=== PATIENT | male | born 1945 | race Hispanic/Latino ===

== ENCOUNTER 2018-10-17 02:32 | Emergency (ER) | payer MEDICARE, MEDICAID, SELFPAY ==
[2018-10-17 02:46] VITALS: BP 178/64; PULSE 72; RESP 16; TEMP 36.7; O2SAT 97; BMI 36.1
--- NOTE | 2018-10-17 02:54 | DI.RAD.S_ITS ---
PROCEDURE: XR LUMBAR SPINE 2-3V INDICATIONS: left SI region pain, chronic, intermittent, no trauma TECHNIQUE: 3 views of the lumbar spine were acquired. COMPARISON: None. FINDINGS: Bones: 5 [id number] vertebrae are present in the lowest rib visualized is considered the 12th rib and is fully developed. There is transitional vertebral anatomy at the lumbosacral junction, with what appears to be a rudimentary disc at S1-S2 and facet joints also rudimentary S1-S2. 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 Degenerative disc disease is moderate to moderately severe at L5-S1. Sacroiliac joints show mild symmetric degenerative change.. There is normal bony alignment. No vertebral body compression fractures. No suspicious bony lesions. Soft tissues: Overlying bowel gas pattern is normal. No suspicious soft tissue calcifications. IMPRESSION: No trauma found. The lowest visualized rib is large and presumed to be the 12th rib. With this qualification there appears to be a transitional vertebral anatomy at the lumbosacral junction as discussed in detail in the body of the report above. Low lumbosacral spine and S1-S2 degenerative changes are prominent and most pronounced at L5-S1 and S1-S2. Both spinal and foraminal stenosis likely would be associated. Dictated by: Jelani Puentes M.D. on 10/17/2018 at 8:28 Approved by: Jelani Puentes M.D. on 10/17/2018 at 8:30
--- NOTE | 2018-10-17 02:55 | ED.BACK ---
HPI - Back Pain/Injury General Chief Complaint: Back Pain/Injury Stated Complaint: back pain Time Seen by Provider: 10/17/18 02:38 Source: patient and family Mode of arrival: ambulatory Limitations: language barrier (patient speaks some azerbaijani, daughter also translating in room.) History of Present Illness HPI Narrative: This is a 73-year-old male comes to the emergency department with complaint of left-sided back pain. Patient points to the SI region and states the pain is very localized. I states it feels a little bit deep. It comes and goes but is typically exacerbated by activity or sitting for long periods of time. Him and his just recently drove up from [facility] and that he was doing work in the , gardening and moving a lot of trash Litch likely exacerbated his symptoms. The pain does not radiate anywhere else. Does not have any numbness or weakness. He has been treated emergency department before and states he usually gets a shot for the pain. Patient had some Tylenol at 3:00 p.m. today has not had anything else since then. Patient has not had any falls or trauma. No chest pain. Patient has a history significant for heart attack 30 years ago, diabetes, hypertension and dyslipidemia. He states no chronic kidney issues or disease. He has had a hip repair on the left side in the past. Which seemed to be when the back SI region pain initially started. This was many years ago. Related Data Home Medications Medication Instructions Recorded Confirmed albuterol sulfate [Proventil HFA] 1 puff INHALATION Q4-6H PRN 10/17/18 10/17/18 aspirin [Aspirin Low Dose] 81 mg PO DAILY 10/17/18 10/17/18 doxazosin 4 mg PO DAILY 10/17/18 10/17/18 finasteride 5 mg PO DAILY 10/17/18 10/17/18 fluticasone [Flovent HFA] 1 puff INHALATION BID 10/17/18 10/17/18 glipizide 5 mg PO BID 10/17/18 10/17/18 lisinopril 2.5 mg PO DAILY 10/17/18 10/17/18 lovastatin 40 mg PO DAILY 10/17/18 10/17/18 metformin 1,000 mg PO BID 10/17/18 10/17/18 omeprazole 20 mg PO DAILY 10/17/18 10/17/18 Previous Rx's Medication Instructions Recorded hydrocodone-acetaminophen [[place]] 1 tab PO Q6H PRN #7 tab 10/17/18 Allergies Allergy/AdvReac Type Severity Reaction Status Date / Time No Known Drug Allergies Allergy Verified 10/17/18 02:55 Review of Systems Review of Systems All systems reviewed & are unremarkable except as noted in HPI and below Constitutional Denies fever(s) and Denies weakness Gastrointestinal Gastrointestinal: Denies abdominal pain Genitourinary Denies urinary incontinence Musculoskeletal Reports abnormal gait (pain with movement), Reports back pain, Reports limited range of motion, Denies muscle weakness, Denies numbness and Denies radiating pain into limb Integumentary/Breasts Denies rash Neurologic Reports abnormal gait (pain with movement), Denies numbness, Denies sensory deficit and Denies weakness PFSH Medical History Coronary artery disease (Acute) Diabetes (Acute) Dyslipidemia (Acute) Hypertension (Acute) Surgical History History of hip surgery (Acute) Social History marital status: details: Lives in [place], [place] household members: spouse lives independently: Yes Smoking Status: Never smoker Exam Narrative Exam Narrative: GENERAL: Alert and oriented x three, Well-nourished, well-appearing male in moderate distress. HEENT: Head normocephalic, atraumatic, EOMI, pupils reactive, face symmetric, moist mucous membranes NECK: Supple, full range of motion CARDIOVASCULAR: Regular rate and rhythm without murmurs, rubs or gallops. RESPIRATORY: Breath sounds equal bilaterally, no wheezes rales or rhonchi. ABDOMEN: Soft, nontender. Normoactive bowel sounds all 4 quadrants. No guarding or rebound, rigidity, no mass : No CVA tenderness BACK: No cervical, thoracic or lumbar vertebral point tenderness. Patient has point tenderness over the left SI joint. Patient has decreased range of motion but is able to move from standing to laying on gurney, patient more comfortable laying flat, uncomfortable at angle. Patient's gait is antalgic. Rectal exam is deferred. Muscle strength is 5/5 in lower extremities, DTRs are 2/4 and lower extremities. Dorsalis pedis and tibialis pulses are 2+ and lower extremities. Sensation is intact in the lower extremities. No rashes or erythema. EXTREMITIES: Normal range of motion, no clubbing or edema. Neurovascularly intact NEUROLOGICAL: Cranial nerves II through XII grossly intact. Moving all extremities SKIN: Warm, dry, no petechiae, no rashes or lesions. Initial Vital Signs Initial Vital Signs: Vital Signs Temperature 98.1 F 10/17/18 02:46 Pulse Rate 72 10/17/18 02:46 Respiratory Rate 16 10/17/18 02:46 Blood Pressure 178/64 H 10/17/18 02:46 Pulse Oximetry 97 10/17/18 02:46 Course Orders Ordered: ED Orders 10/17/18 02:54 XR lumbar spine 2-3V Stat Discontinued Medications Hydrocodone Bitart/Acetaminophen (Vicodin Prepack) 1 bottle MISC SEEINSTR ONE Stop: 10/17/18 04:11 Last Admin: 10/17/18 04:34 Dose: 1 bottle Ketorolac Tromethamine (Toradol) 30 mg IM NOW ONE Stop: 10/17/18 02:55 Last Admin: 10/17/18 03:05 Dose: 30 mg Lorazepam (Ativan) 0.5 mg PO NOW ONE Stop: 10/17/18 02:55 Last Admin: 10/17/18 03:05 Dose: 0.5 mg Vital Signs - 8 hr 10/17/18 02:46 10/17/18 04:48 Temperature 98.1 F Pulse Rate 72 70 Respiratory Rate 16 16 Blood Pressure 178/64 H 187/92 H Pulse Oximetry 97 99 [facility] - Back Pain/Injury Imaging Data Lspine xray: Attestation: I personally reviewed and interpreted this imaging study as follows: My impression: Patient has multiple degenerative changes/osteophytes to lumbar spine, L5 appears to have small posterior fx. Also increased opacity of right SI region. [facility] Narrative Medical decision making narrative: Recheck after medication, patient is feeling more comfortable. Discussed xray findings with patient and daughter. Patient is not tender in this area, no recent trauma and with recurrent SI region pain feel it is appropriate for patient to follow up outpatient. Patient given disc with images and discussed need for follow up. They will call Thursday morning for appointment. Given short term rx of pain meds and plan for tylenol/ibuprofen prn otherwise for pain. Patient has not had any other redflag symptoms. Patient feels much more comfortable, able to ambulate. Family is comfortable with plan, also discussed red flag symptoms to return emergently to ER. Discharge Plan Departure Patient Disposition: Home Clinical Impression: Chronic SI joint pain, Fracture of L5 vertebra Discharge Date/Time: 10/17/18 04:51 Interventions: ED Discharge Assessment Last Done: 10/17/18 04:48 Instructions: Sacroiliac Joint Pain Activity Restrictions/Additional Instructions: Follow up with primary care for recheck and further evaluation of changes on xray. Return to ER for worsening symptoms such as new weakness, numbness, loss of bowel or bladder control, rapidly worsening pain or other new or concerning symptoms. Take the disc with xray images with you to your physician. You may take tylenol up to a 1000mg every 8 hours as needed for pain. If this is not adequate, take norco as prescribed, this medication can make you sleepy do not drive, perform hazards activities or make any major decisions while taking it. You may take ibuprofen with this medication. Do not take it with tylenol. You may continue your home medications. Prescriptions: New hydrocodone-acetaminophen [[place]] 5-325 mg tablet 1 tab PO Q6H PRN (Reason: pain) Qty: 7 RF: 0 No Action lovastatin 40 mg Tablet 40 mg PO DAILY RF: 0 aspirin [Aspirin Low Dose] 81 mg Tablet,Delayed Release (Dr/Ec) 81 mg PO DAILY RF: 0 metformin 1,000 mg Tablet 1,000 mg PO BID RF: 0 omeprazole 20 mg Capsule,Delayed Release(Dr/Ec) 20 mg PO DAILY RF: 0 doxazosin 4 mg Tablet 4 mg PO DAILY RF: 0 fluticasone [Flovent HFA] 220 mcg/actuation Hfa Aerosol Inhaler 1 puff INHALATION BID RF: 0 albuterol sulfate [Proventil HFA] 90 mcg/actuation Hfa Aerosol Inhaler 1 puff INHALATION Q4-6H PRN (Reason: Dyspnea) RF: 0 lisinopril 2.5 mg Tablet 2.5 mg PO DAILY RF: 0 finasteride 5 mg Tablet 5 mg PO DAILY RF: 0 glipizide 5 mg Tablet 5 mg PO BID RF: 0
--- NOTE | 2018-10-17 03:04 | ED_ITS ---
HPI - Back Pain/Injury General Chief Complaint: Back Pain/Injury Stated Complaint: back pain Time Seen by Provider: 10/17/18 02:38 Source: patient and family Mode of arrival: ambulatory Limitations: language barrier (patient speaks some uzbek, daughter also translating in room.) History of Present Illness HPI Narrative: This is a 73-year-old male comes to the emergency department with complaint of left-sided back pain. Patient points to the SI region and states the pain is very localized. I states it feels a little bit deep. It comes and goes but is typically exacerbated by activity or sitting for long periods of time. Him and his just recently drove up from [facility] and that he was doing work in the , gardening and moving a lot of trash Litch likely exacerbated his symptoms. The pain does not radiate anywhere else. Does not have any numbness or weakness. He has been treated emergency department before and states he usually gets a shot for the pain. Patient had some Tylenol at 3:00 p.m. today has not had anything else since then. Patient has not had any falls or trauma. No chest pain. Patient has a history significant for heart attack 30 years ago, diabetes, hypertension and dyslipidemia. He states no chronic kidney issues or disease. He has had a hip repair on the left side in the past. Which seemed to be when the back SI region pain initially started. This was many years ago. Related Data Home Medications Medication Instructions Recorded Confirmed albuterol sulfate [Proventil HFA] 1 puff INHALATION Q4-6H PRN 10/17/18 10/17/18 aspirin [Aspirin Low Dose] 81 mg PO DAILY 10/17/18 10/17/18 doxazosin 4 mg PO DAILY 10/17/18 10/17/18 finasteride 5 mg PO DAILY 10/17/18 10/17/18 fluticasone [Flovent HFA] 1 puff INHALATION BID 10/17/18 10/17/18 glipizide 5 mg PO BID 10/17/18 10/17/18 lisinopril 2.5 mg PO DAILY 10/17/18 10/17/18 lovastatin 40 mg PO DAILY 10/17/18 10/17/18 metformin 1,000 mg PO BID 10/17/18 10/17/18 omeprazole 20 mg PO DAILY 10/17/18 10/17/18 Previous Rx's Medication Instructions Recorded hydrocodone-acetaminophen [[place]] 1 tab PO Q6H PRN #7 tab 10/17/18 Allergies Allergy/AdvReac Type Severity Reaction Status Date / Time No Known Drug Allergies Allergy Verified 10/17/18 02:55 Review of Systems Review of Systems All systems reviewed & are unremarkable except as noted in HPI and below Constitutional Denies fever(s) and Denies weakness Gastrointestinal Gastrointestinal: Denies abdominal pain Genitourinary Denies urinary incontinence Musculoskeletal Reports abnormal gait (pain with movement), Reports back pain, Reports limited range of motion, Denies muscle weakness, Denies numbness and Denies radiating pain into limb Integumentary/Breasts Denies rash Neurologic Reports abnormal gait (pain with movement), Denies numbness, Denies sensory deficit and Denies weakness PFSH Medical History Coronary artery disease (Acute) Diabetes (Acute) Dyslipidemia (Acute) Hypertension (Acute) Surgical History History of hip surgery (Acute) Social History marital status: details: Lives in [place], [place] household members: spouse lives independently: Yes Smoking Status: Never smoker Exam Narrative Exam Narrative: GENERAL: Alert and oriented x three, Well-nourished, well- appearing male in moderate distress. HEENT: Head normocephalic, atraumatic, EOMI, pupils reactive, face symmetric, moist mucous membranes NECK: Supple, full range of motion CARDIOVASCULAR: Regular rate and rhythm without murmurs, rubs or gallops. RESPIRATORY: Breath sounds equal bilaterally, no wheezes rales or rhonchi. ABDOMEN: Soft, nontender. Normoactive bowel sounds all 4 quadrants. No guarding or rebound, rigidity, no mass : No CVA tenderness BACK: No cervical, thoracic or lumbar vertebral point tenderness. Patient has point tenderness over the left SI joint. Patient has decreased range of motion but is able to move from standing to laying on gurney, patient more comfortable laying flat, uncomfortable at angle. Patient's gait is antalgic. Rectal exam is deferred. Muscle strength is 5/5 in lower extremities, DTRs are 2/4 and lower extremities. Dorsalis pedis and tibialis pulses are 2+ and lower extremities. Sensation is intact in the lower extremities. No rashes or erythema. EXTREMITIES: Normal range of motion, no clubbing or edema. Neurovascularly intact NEUROLOGICAL: Cranial nerves II through XII grossly intact. Moving all extremities SKIN: Warm, dry, no petechiae, no rashes or lesions. Initial Vital Signs Initial Vital Signs: Vital Signs Temperature 98.1 F 10/17/18 02:46 Pulse Rate 72 10/17/18 02:46 Respiratory Rate 16 10/17/18 02:46 Blood Pressure 178/64 H 10/17/18 02:46 Pulse Oximetry 97 10/17/18 02:46 Course Orders Ordered: ED Orders 10/17/18 02:54 XR lumbar spine 2-3V Stat Discontinued Medications Hydrocodone Bitart/Acetaminophen (Vicodin Prepack) 1 bottle MISC SEEINSTR ONE Stop: 10/17/18 04:11 Last Admin: 10/17/18 04:34 Dose: 1 bottle Ketorolac Tromethamine (Toradol) 30 mg IM NOW ONE Stop: 10/17/18 02:55 Last Admin: 10/17/18 03:05 Dose: 30 mg Lorazepam (Ativan) 0.5 mg PO NOW ONE Stop: 10/17/18 02:55 Last Admin: 10/17/18 03:05 Dose: 0.5 mg Vital Signs - 8 hr 10/17/18 02:46 10/17/18 04:48 Temperature 98.1 F Pulse Rate 72 70 Respiratory Rate 16 16 Blood Pressure 178/64 H 187/92 H Pulse Oximetry 97 99 [facility] - Back Pain/Injury Imaging Data Lspine xray: Attestation: I personally reviewed and interpreted this imaging study as follows: My impression: Patient has multiple degenerative changes/osteophytes to lumbar spine, L5 appears to have small posterior fx. Also increased opacity of right SI region. [facility] Narrative Medical decision making narrative: Recheck after medication, patient is feeling more comfortable. Discussed xray findings with patient and daughter. Patient is not tender in this area, no recent trauma and with recurrent SI region pain feel it is appropriate for patient to follow up outpatient. Patient given disc with images and discussed need for follow up. They will call Thursday morning for appointment. Given short term rx of pain meds and plan for tylenol/ ibuprofen prn otherwise for pain. Patient has not had any other redflag symptoms. Patient feels much more comfortable, able to ambulate. Family is comfortable with plan, also discussed red flag symptoms to return emergently to ER. Discharge Plan Departure Patient Disposition: Home Clinical Impression: Chronic SI joint pain, Fracture of L5 vertebra Discharge Date/Time: 10/17/18 04:51 Interventions: ED Discharge Assessment Last Done: 10/17/18 04:48 Instructions: Sacroiliac Joint Pain Activity Restrictions/Additional Instructions: Follow up with primary care for recheck and further evaluation of changes on xray. Return to ER for worsening symptoms such as new weakness, numbness, loss of bowel or bladder control, rapidly worsening pain or other new or concerning symptoms. Take the disc with xray images with you to your physician. You may take tylenol up to a 1000mg every 8 hours as needed for pain. If this is not adequate, take norco as prescribed, this medication can make you sleepy do not drive, perform hazards activities or make any major decisions while taking it. You may take ibuprofen with this medication. Do not take it with tylenol. You may continue your home medications. Prescriptions: New hydrocodone-acetaminophen [[place]] 5-325 mg tablet 1 tab PO Q6H PRN (Reason: pain) Qty: 7 RF: 0 No Action lovastatin 40 mg Tablet 40 mg PO DAILY RF: 0 aspirin [Aspirin Low Dose] 81 mg Tablet,Delayed Release (Dr/Ec) 81 mg PO DAILY RF: 0 metformin 1,000 mg Tablet 1,000 mg PO BID RF: 0 omeprazole 20 mg Capsule,Delayed Release(Dr/Ec) 20 mg PO DAILY RF: 0 doxazosin 4 mg Tablet 4 mg PO DAILY RF: 0 fluticasone [Flovent HFA] 220 mcg/actuation Hfa Aerosol Inhaler 1 puff INHALATION BID RF: 0 albuterol sulfate [Proventil HFA] 90 mcg/actuation Hfa Aerosol Inhaler 1 puff INHALATION Q4-6H PRN (Reason: Dyspnea) RF: 0 lisinopril 2.5 mg Tablet 2.5 mg PO DAILY RF: 0 finasteride 5 mg Tablet 5 mg PO DAILY RF: 0 glipizide 5 mg Tablet 5 mg PO BID RF: 0
--- NOTE | 2018-10-17 03:04 | PC.NURSE ---
pt daughter translating for pt. Pt appears to have good understanding of Azerbaijani with difficulty in speaking Azerbaijani. Pt reports having a hip fracture a long time ago that started a reoccurring nerve pain when sitting for long periods of time or when it is really cold outside. Pt just drove up from [facility] and the outside temp is in the 30s. Pt denies changes in bowel or bladder. denies sensory deficits in lower extremities. denies other symptoms. Pt had difficulty transferring from wheelchair to stretcher requiring 2pa assistance with what appeared to be shooting pain with big movements. Pt is able to find comfort when laying flat on stretcher.
[2018-10-17] MEDS: LORazepam 0.5 MG TABLET PO (03:05)
[2018-10-17] MEDS: KETOROLAC 60 MG/2 ML VIAL 30 MG IM (03:05)
[2018-10-17] MEDS: HYDROCODONE/ACET 5/325 PREPACK 1 BOTTLE MISC (04:34)
[2018-10-17 04:48] VITALS: BP 187/92; PULSE 70; RESP 16; O2SAT 99
--- NOTE | 2018-10-19 14:40 | PC.NURSE ---
Pt feeling better
== END 2018-10-17 04:51 | disposition home or self-care (01) ==
PROVIDERS: Emergency Provider Emergency Medicine
DX: S32.059A Unspecified fracture of fifth lumbar vertebra, initial encounter for closed fracture (principal); M53.3 Sacrococcygeal disorders, not elsewhere classified; G89.29 Other chronic pain; X50.1XXA Overexertion from prolonged static or awkward postures, initial encounter
CPT/HCPCS: 72100; 96372; 99282; 99283; J1885

== ENCOUNTER 2024-01-15 15:37 | Emergency (ER) | payer MEDICARE, MEDICAID, SELFPAY ==
[2024-01-15] VITALS (17 sets, daily range): BP systolic 130–194; BP diastolic 58–83; PULSE 58–72; RESP 18–20; TEMP 36.5; O2SAT 97–100; BMI 27.4
[2024-01-15 16:38] LABS: Add Manual Diff / Slide Review NO; Basophils Absolute Auto 100 /uL (0-100); Eosinophils Absolute Auto 300 /uL (0-450); Eosinophils Percent Auto 3.2 % (2-4); Hematocrit 38.3 % (41-53); Hemoglobin 13.1 g/dL (13.5-17.5); Lymphocytes Absolute Auto 2500 /uL (1100-4500); Mean Corpuscular HGB Conc 34.1 % (30-36); Mean Corpuscular Hemoglobin 28.6 PG (26-34); Mean Corpuscular Volume 83.9 fL (80-100); Monocytes Absolute Auto 900 /uL (0-900); Monocytes Percent Auto 9.8 % (3-14); Neutrophils Absolute Auto 5500 /uL (1500-7000); Platelet Count 248 X10^3/uL (150-400); Red Blood Cell Count 4.57 X10^6/uL (4.5-5.9); Red Cell Distribution Width 13.4 % (11.6-14.8); White Blood Cell Count 9.3 X10^3/uL (4.5-11.0)
[2024-01-15 16:41] LABS: Alanine Aminotransferase 19 IU/L (<50); Albumin Globulin Ratio 1.3 (1.0-2.8); Alkaline Phosphatase 47 U/L (38-126); Aspartate Aminotransferase 28 IU/L (17-59); BUN Creatinine Ratio 24.7 (6-22); Bilirubin Total 0.6 mg/dL (0.2-1.3); Blood Urea Nitrogen 20 mg/dL (9-20); Calcium 9.1 mg/dL (8.4-10.2); Carbon Dioxide 18 mmol/L (22-32); Chloride 103 mmol/L (98-107); Estimated Glomerular Filt Rate > 60 mL/min (>60); Glucose 259 mg/dL (80-110); Lipase 369 U/L (23-300); Potassium 4.2 mmol/L (3.4-5.1); Sodium 135 mmol/L (137-145)
[2024-01-15 16:43] LABS: HEMOLYSIS 61 (0-50)
--- NOTE | 2024-01-15 17:57 | PC.NURSE ---
Pt's daughter at bedside and pt and family informed of having access to a drophammer operator. Pt and daughter deny drophammer operator need at this time. Pt states history of mini strokes and responds yes when asked if he takes blood thinners. Pt pulled out a bottle of SL nitroglycerin from his wallet to show us his blood thinners. Pt educated about the nitroglycerin use for chest pain. Pt and daughter express understanding. Pt had history of right lung cancer .
--- NOTE | 2024-01-15 19:00 | DI.CT.S_ITS ---
PROCEDURE: CT CHEST ABD PEL W CON INDICATIONS: RLower lung field and LUQ abd pain TECHNIQUE: After the administration of intravenous contrast, 5 mm thick sections acquired from the lung apices to the symphysis. 5 mm coronal and sagittal reformats were performed, with additional 7 mm MIP reformats through the lungs. For radiation dose reduction, the following was used: automated exposure control, adjustment of mA and/or kV according to patient size. COMPARISON: None. FINDINGS: Image quality: Excellent. CHEST: Lower Neck: No enlarged lymph nodes. Thyroid: Heterogeneous and slightly enlarged thyroid gland. Probable bilateral nodules. Axillae: No enlarged lymph nodes. Chest Wall: Normal. Lungs and Pleura: Surgical changes of prior right upper lobectomy. No evidence of pneumothorax, pleural effusion, consolidation, or ground-glass opacity. Mild bibasilar bronchial wall thickening. Otherwise patent airways Heart: Heart size is normal. No pericardial effusion. Thoracic Vessels: The aorta and pulmonary arteries demonstrate normal size. Mediastinum and Jamia: No enlarged lymph nodes. Esophagus: No wall thickening. No hiatal hernia. ABDOMEN: Liver: Mild hepatic steatosis. Gallbladder: Surgically absent. Biliary ducts: Nondilated. Pancreas: Normal. Spleen: Normal. Adrenal Glands: No adrenal nodules. Kidneys and Ureters: Symmetric enhancement. No nephrolithiasis or hydronephrosis. No hydroureter. Stomach and Bowel: Stomach and small bowel loops are normal caliber. Normal colon. No suspicious wall thickening or pericolonic inflammation. Peritoneum: No abnormal intraperitoneal fluid. No free air. Ventral Wall: No significant ventral hernia. Abdominal Nodes: No retroperitoneal or mesenteric adenopathy by size criteria. Vessels: Aorta and inferior vena cava are normal in size. Moderate abdominal aortic atherosclerotic calcification. PELVIS: Pelvic Organs: Marked prostatomegaly. Bladder: No bladder wall thickening, accounting for underdistention. Pelvic Nodes: No enlarged lymph nodes. Miscellaneous: No inguinal hernias are seen. Bones: No aggressive osseous abnormality. IMPRESSION: No acute process in the chest, abdomen, or pelvis. Mildly enlarged heterogeneous thyroid gland. Correlate clinically and consider ultrasound for further evaluation. Dictated by: Celia Wellington M.D. on 01/15/2024 at 21:12 Approved by: Celia Wellington M.D. on 01/15/2024 at 21:25
[2024-01-15] MEDS: SODIUM CHLORIDE 0.9% 1,000 ML 1000 ML IV (19:24)
[2024-01-15] MEDS: HYDROMORPHONE 0.5 MG INJ IV (19:49)
--- NOTE | 2024-01-15 19:51 | ED_ITS ---
HPI - General Adult General Chief complaint: Abdominal Pain Stated complaint: ABD Pain Time Seen by Provider: 01/15/24 18:21 Source: patient Mode of arrival: Ambulatory History of Present Illness HPI narrative: 78-year-old gentleman up from [facility] visiting his daughter presents complaining of 5 days of right upper quadrant and lower lung tenderness. He states that the pain is constant and will have periods of exacerbation that do not seem to be related to position, eating or fasting. He has a history of right lower lobe lung cancer with right upper lobe resection on October 18, 2023. Additional medical problems include Type 2 diabetes, reactive airway disease, hypertension, hyperlipidemia, reflux. He notes that he has not been nauseated, there has been no vomiting, he had a normal bowel movement this morning that did not change her alleviate his pain. He states that he has been stooling normally while he has been visiting this week. He describes no palpitations or dyspnea. Related Data Home Medications Medication Instructions Recorded Confirmed albuterol sulfate 90 mcg/actuation 1 puff inhalation Q4-6H PRN Dyspnea 10/17/18 10/17/18 aerosol inhaler (Proventil HFA) aspirin 81 mg tablet,delayed 81 mg PO DAILY 10/17/18 10/17/18 release (Dionte Low Dose Aspirin) doxazosin 4 mg tablet 4 mg PO DAILY 10/17/18 10/17/18 finasteride 5 mg tablet 5 mg PO DAILY 10/17/18 10/17/18 fluticasone propionate 220 1 puff inhalation BID 10/17/18 10/17/18 mcg/actuation HFA aerosol inhaler (Flovent HFA) glipizide 5 mg tablet 5 mg PO BID 10/17/18 10/17/18 lisinopril 2.5 mg tablet 2.5 mg PO DAILY 10/17/18 10/17/18 lovastatin 40 mg tablet 40 mg PO DAILY 10/17/18 10/17/18 metformin 1,000 mg tablet 1,000 mg PO BID 10/17/18 10/17/18 omeprazole 20 mg capsule,delayed 20 mg PO DAILY 10/17/18 10/17/18 release Previous Rx's Medication Instructions Recorded hydrocodone 5 mg-acetaminophen 325 1 tab PO Q6H PRN pain #7 tabs 10/17/18 mg tablet ([place]) Allergies Allergy/AdvReac Type Severity Reaction Status Date / Time No Known Drug Allergies Allergy Verified 01/15/24 16:06 Review of Systems Review of Systems Narrative: Pertinent positive and negative findings as per HPI Patient History Medical History (Updated 01/15/24 @ 21:47 by Awa Brand MD) Lung cancer Coronary artery disease Hypertension Dyslipidemia Diabetes Surgical History (Updated 10/17/18 @ 03:01 by Apryl Alvarez DO) History of hip surgery Social History (Updated 10/17/18 @ 03:01 by Apryl Alvarez DO) marital status: details: Lives in [place], [place] household members: spouse lives independently: Yes Smoking Status: Never smoker Smoking Status: Never smoker alcohol intake frequency: 0-2 drinks per day Substance Use Type: does not use Exam Initial Vital Signs Initial Vital Signs: Vital Signs Temperature 97.7 F 01/15/24 15:56 Pulse Rate 72 01/15/24 15:56 Respiratory Rate 20 01/15/24 15:56 Blood Pressure 130/58 L 01/15/24 15:56 Pulse Oximetry 99 01/15/24 15:56 Oxygen Delivery Method Room Air 01/15/24 15:56 General: Healthy appearing, in mild distress. Able to cooperate fully with exam and history. Well-nourished well-developed HEENT: Moist mucous membranes, normal sclera with reactive pupils, Respiratory: Lungs are clear to auscultation, no wheezing no rales no rhonchi. Full and symmetrical air movement Chest: He has some reproducible tenderness with palpation of the right lower chest and right upper abdominal area. Cardiac: Regular rate and rhythm no murmurs no bruits Abdomen: Soft, right upper abdominal tenderness without rebound or guarding. No flank pain. Skin: Warm and dry, no rashes Neurologic: Grossly neurologically intact with no obvious asymmetries or abnormalities Extremities: No trauma, well perfused Psych: Cooperative, appropriate insight and affect Course Orders Ordered: ED Orders 01/15/24 16:07 EKG-12 Lead Stat 01/15/24 16:15 Complete Blood Count AUTO DIFF Stat Comprehensive Metabolic Panel Stat Lipase Stat 01/15/24 19:00 CT chest abd pel w con Stat Hydromorphone HCl (Hydromorphone 0.5 Mg Inj) 0.5 mg IV Q15MIN PRN PRN Reason: Pain, Last Admin: 01/15/24 19:49 Dose: 0.5 mg Documented By: JOSE Ondansetron HCl (Ondansetron 4 Mg/2 Ml Inj) 4 mg IV NOW PRN PRN Reason: Nausea And Vomiting Ondansetron HCl (Ondansetron 4 Mg Odt) 4 mg PO NOW PRN PRN Reason: Nausea And Vomiting Discontinued Medications Sodium Chloride (Normal Saline 0.9%) 1,000 mls @ 1,000 mls/hr IV BOLUS ONE Stop: 01/15/24 19:59 Last Infusion: 01/15/24 21:16 Dose: Infused Documented By: Infusion: 01/15/24 19:50 Dose: 1,000 mls/hr Documented By: Infusion: 01/15/24 19:25 Dose: 0 mls/hr Documented By: Admin: 01/15/24 19:24 Dose: 1,000 mls/hr Documented By: PAMELA Vital Signs Vital signs: Vital Signs - 8 hr 01/15/24 15:56 01/15/24 16:50 01/15/24 16:50 Temperature 97.7 F Pulse Rate 72 68 Respiratory Rate 20 Blood Pressure 130/58 L 142/67 H Pulse Oximetry 99 100 Oxygen Delivery Method Room Air Room Air 01/15/24 17:00 01/15/24 17:30 01/15/24 17:50 Temperature Pulse Rate 65 64 Respiratory Rate Blood Pressure 175/68 H Pulse Oximetry 99 99 Oxygen Delivery Method Room Air 01/15/24 17:50 01/15/24 18:00 01/15/24 18:00 Temperature Pulse Rate 63 64 Respiratory Rate Blood Pressure 156/72 H Pulse Oximetry 97 98 Oxygen Delivery Method Room Air 01/15/24 18:30 01/15/24 18:30 01/15/24 19:00 Temperature Pulse Rate 65 59 L Respiratory Rate Blood Pressure 150/72 H Pulse Oximetry 99 98 Oxygen Delivery Method Room Air Room Air 01/15/24 19:00 01/15/24 19:38 01/15/24 19:39 Temperature Pulse Rate 66 65 Respiratory Rate Blood Pressure 148/64 H Pulse Oximetry 99 99 Oxygen Delivery Method 01/15/24 19:39 01/15/24 20:00 01/15/24 20:01 Temperature Pulse Rate 60 62 Respiratory Rate 18 Blood Pressure 194/83 H Pulse Oximetry 98 98 Oxygen Delivery Method Room Air 01/15/24 20:01 01/15/24 20:30 01/15/24 20:31 Temperature Pulse Rate 59 L Respiratory Rate Blood Pressure 189/79 H 166/79 H Pulse Oximetry 98 Oxygen Delivery Method 01/15/24 20:31 01/15/24 21:00 01/15/24 21:05 Temperature Pulse Rate 58 L 60 Respiratory Rate Blood Pressure 149/82 H Pulse Oximetry 98 99 Oxygen Delivery Method Room Air Room Air 01/15/24 21:05 Temperature Pulse Rate 59 L Respiratory Rate Blood Pressure Pulse Oximetry 99 Oxygen Delivery Method Medical Decision Making Lab Data 01/15/24 16:15 01/15/24 16:15 Labs: Lab Results 01/15/24 Range/Units 16:15 WBC 9.3 (4.5-11.0) X10^3/uL RBC 4.57 (4.5-5.9) X10^6/uL Hgb 13.1 L (13.5-17.5) g/dL Hct 38.3 L (41-53) % MCV 83.9 (80-100) fL MCH 28.6 (26-34) PG MCHC 34.1 (30-36) % RDW 13.4 (11.6-14.8) % Plt Count 248 (150-400) X10^3/uL Neut % (Auto) 59.0 (50-75) % Lymph % (Auto) 27.0 (25-40) % [place] % (Auto) 9.8 (3-14) % Eos % (Auto) 3.2 (2-4) % Baso % (Auto) 1.0 (0-2) % Neut # (Auto) 5500 (5533-4130) /uL Lymph # (Auto) 2500 (6371-3890) /uL Ramsey # (Auto) 900 (0-900) /uL Eos # (Auto) 300 (0-450) /uL Baso # (Auto) 100 (0-100) /uL Sodium 135 L (137-145) mmol/L Potassium 4.2 (3.4-5.1) mmol/L Chloride 103 (98-107) mmol/L Carbon Dioxide 18 L (22-32) mmol/L BUN 20 (9-20) mg/dL Creatinine 0.81 (0.66-1.25) mg/dL Estimated GFR > 60 (>60) mL/min BUN/Creatinine Ratio 24.7 H (6-22) Glucose 259 H (80-110) mg/dL Calcium 9.1 (8.4-10.2) mg/dL Total Bilirubin 0.6 (0.2-1.3) mg/dL AST 28 (17-59) IU/L ALT 19 (<50) IU/L Alkaline Phosphatase 47 (38-126) U/L Total Protein 7.0 (6.3-8.2) g/dL Albumin 4.0 (3.5-5.0) g/dL Globulin 3.0 (1.7-4.1) g/dL Albumin/Globulin Ratio 1.3 (1.0-2.8) Lipase 369 H (23-300) U/L Urine Dip Bedside Urine Glucose 1000 mg/dl Bedside Urine Bilirubin - Negative Bedside Urine Ketone - Negative Urine Specific [place] 1.020 Bedside Urine Occult Blood - Negative Bedside Urine pH 5.5 Bedside Urine Protein - Negative Bedside Urine Urobilinogen - Negative Bedside Urine Nitrite - Negative Bedside Urine Leukocytes - Negative Esterase Point of care testing: Urine Dip Bedside Urine Glucose 1000 mg/dl Bedside Urine Bilirubin - Negative Bedside Urine Ketone - Negative Urine Specific [place] 1.020 Bedside Urine Occult Blood - Negative Bedside Urine pH 5.5 Bedside Urine Protein - Negative Bedside Urine Urobilinogen - Negative Bedside Urine Nitrite - Negative Bedside Urine Leukocytes - Negative Esterase Imaging Data CT scan - abdomen/pelvis: Radiologist's Impression: PROCEDURE: CT CHEST ABD PEL W CON INDICATIONS: RLower lung field and LUQ abd pain TECHNIQUE: After the administration of intravenous contrast, 5 mm thick sections acquired from the lung apices to the symphysis. 5 mm coronal and sagittal reformats were performed, with additional 7 mm MIP reformats through the lungs. For radiation dose reduction, the following was used: automated exposure control, adjustment of mA and/or kV according to patient size. COMPARISON: None. FINDINGS: Image quality: Excellent. CHEST: Lower Neck: No enlarged lymph nodes. Thyroid: Heterogeneous and slightly enlarged thyroid gland. Probable bilateral nodules. Axillae: No enlarged lymph nodes. Chest Wall: Normal. Lungs and Pleura: Surgical changes of prior right upper lobectomy. No evidence of pneumothorax, pleural effusion, consolidation, or ground-glass opacity. Mild bibasilar bronchial wall thickening. Otherwise patent airways Heart: Heart size is normal. No pericardial effusion. Thoracic Vessels: The aorta and pulmonary arteries demonstrate normal size. Mediastinum and Jamia: No enlarged lymph nodes. Esophagus: No wall thickening. No hiatal hernia. ABDOMEN: Liver: Mild hepatic steatosis. Gallbladder: Surgically absent. Biliary ducts: Nondilated. Pancreas: Normal. Spleen: Normal. Adrenal Glands: No adrenal nodules. Kidneys and Ureters: Symmetric enhancement. No nephrolithiasis or hydronephrosis. No hydroureter. Stomach and Bowel: Stomach and small bowel loops are normal caliber. Normal colon. No suspicious wall thickening or pericolonic inflammation. Peritoneum: No abnormal intraperitoneal fluid. No free air. Ventral Wall: No significant ventral hernia. Abdominal Nodes: No retroperitoneal or mesenteric adenopathy by size criteria. Vessels: Aorta and inferior vena cava are normal in size. Moderate abdominal aortic atherosclerotic calcification. PELVIS: Pelvic Organs: Marked prostatomegaly. Bladder: No bladder wall thickening, accounting for underdistention. Pelvic Nodes: No enlarged lymph nodes. Miscellaneous: No inguinal hernias are seen. Bones: No aggressive osseous abnormality. IMPRESSION: No acute process in the chest, abdomen, or pelvis. Mildly enlarged heterogeneous thyroid gland. Correlate clinically and consider ultrasound for further evaluation. Dictated by: Celia Wellington M.D. on 01/15/2024 at 21:12 MDM Narrative Medical decision making narrative: CC: Right lower lobe and upper abdominal pain for 5 days Complicating co-morbidities: History of right lower lobe lung cancer, currently visiting with the majority of his care in [facility] Data collected from: patient, daughter Medical records reviewed: His daughter has access to his electronic health record on her phone and this was reviewed Differential considered: Complications with lung cancer, pneumonia, metastatic lesions, liver disease, choledocholithiasis (patient is unsure if he has had his gallbladder out but he has surgical scars but suggest that he probably has) Exam documented above, pertinent findings include: Moderate distress with reproducible tenderness and right lower lobes and right upper quadrant. Lab Test results independently reviewed as above. Pertinent findings: CBC does not show significant leukocytosis. Mild anemia at 13.1 and 38.3 Chemistries are notable for a glucose at 2:59 a.m., liver function studies are unremarkable Lipase is minimally elevated at 369 Imaging studies independently reviewed: CT scan shows no acute findings. There is moderate stool loading in the hepatic flexure which May explain part of his pain Treatments: IV fluids are given. Small dose of Dilaudid. Discussion: 78-year-old gentleman with recent right upper lobectomy visiting his daughter presents with 5 days of increasing abdominal pain and right lower lobe pain. He notes that he did have a normal bowel movement today. He does have occasional oxycodone available for the postoperative and cancer-related pain. CT scan is unremarkable as are labs. He does not have an acute surgical abdomen. Suspect that the majority of his pain is secondary to constipation. Patient is familiar with dealing with constipation and has MiraLax at home. Findings reviewed with the patient and family. They will add additional MiraLax are comfortable with current explanations and safe for discharge home. I will give him copies of their imaging studies as well as lab work to share with providers when he follows up in [facility] regarding his lung cancer care. Discharge Plan Departure Patient Disposition: Home Clinical Impression: Constipation Instructions: DI for Constipation Activity Restrictions/Additional Instructions: Thank you for coming in today There is no evidence of tumors, masses, infection, collapsed lungs or alternate findings to explain your abdominal pain. In looking at the CT scan there is quite a bit of stool that is stuck over in the corner of your abdomen where you are having the pain. I suspect that constipation is the cause for your pain. I would recommend increased use of MiraLax and adjust the dosage so that you are having at least 1 soft bowel movement daily. If you are having increasing pain try adding an extra dose of MiraLax. You can get backed up even with daily bowel movements. I have given you copies of the CT scan results as well as your blood work to share with your doctors when you return to [place] If you find that you are getting worse or develop any new symptoms, please feel free to return to the emergency department for further evaluation. Prescriptions: No Action lovastatin 40 mg Tablet 40 mg PO DAILY aspirin [Dionte Low Dose Aspirin] 81 mg Tablet,Delayed Release (Dr/Ec) 81 mg PO DAILY metformin 1,000 mg Tablet 1,000 mg PO BID omeprazole 20 mg Capsule,Delayed Release(Dr/Ec) 20 mg PO DAILY doxazosin 4 mg Tablet 4 mg PO DAILY fluticasone propionate [Flovent HFA] 220 mcg/actuation Hfa Aerosol Inhaler 1 puff INHALATION BID albuterol sulfate [Proventil HFA] 90 mcg/actuation Hfa Aerosol Inhaler 1 puff INHALATION Q4-6H PRN (Reason: Dyspnea) lisinopril 2.5 mg Tablet 2.5 mg PO DAILY finasteride 5 mg Tablet 5 mg PO DAILY glipizide 5 mg Tablet 5 mg PO BID hydrocodone-acetaminophen [[place]] 5-325 mg tablet 1 tab PO Q6H PRN (Reason: pain) Qty: 7 0RF Stand Alone Forms: Patient Portal/API
== END 2024-01-15 22:03 | disposition home or self-care (01) ==
PROVIDERS: Emergency Medicine; Emergency Provider Emergency Medicine
DX: K59.00 Constipation, unspecified (principal); R10.11 Right upper quadrant pain; Z79.899 Other long term (current) drug therapy
CPT/HCPCS: 36415; 71260; 74177; 80053; 81003; 83690; 85025; 96361; 96374; 99284; J1170; Q9967

== ENCOUNTER 2024-12-26 12:37 | Emergency (ER) | payer MEDICARE, MEDICAID, SELFPAY ==
[2024-12-26 12:45] VITALS: BP 150/65; PULSE 62; RESP 16; TEMP 36.5; O2SAT 100; BMI 26.8
[2024-12-26] MEDS: PROPARACAINE 0.5% OPHTH SOL 1 DROPS EYE-BOTH (14:15)
[2024-12-26] MEDS: FLUORESCEIN 1 MG STRIP EYE-LEFT (14:26)
--- NOTE | 2024-12-26 15:40 | PC.NURSE ---
Visual acuity performed in room with [facility] pocket vision screener. Pt vision is worse in his RIGHT (unaffected) eye. Pt states he has been needing to go to the eye doctor. See visual acuity. Right 20/200 Left 20/30 Bilateral 20/30 Provider Bowen notified.
[2024-12-26] MEDS: ERYTHROMYCIN OPHTH 1 GM OINT 1 APPLIC EYE-LEFT (15:46)
[2024-12-26 16:00] VITALS: BP 164/70; PULSE 59; RESP 14; O2SAT 97
--- NOTE | 2024-12-26 16:55 | ED_ITS ---
HPI - Eye Problem <Jarod Wiseman PA-C - Last Filed: 12/26/24 18:39> General Chief complaint: Eye Problems Stated complaint: eye irritation, rubbed chili oil eye Time Seen by Provider: 12/26/24 13:25 Source: patient and family Mode of arrival: Ambulatory History of Present Illness HPI Narrative: 79-year-old male presents to the ED with 4 days of left-sided eye irritation. Patient states that he accidentally rubbed his left eye when he had some chili oil on his finger. Patient has been trying to use [id number] redness reducing drops with no improvement. Patient complains of I irritation, headache. Patient states his left eye feels blurry, however no gross visual changes. Related Data Home Medications Medication Instructions Recorded Confirmed albuterol sulfate 90 mcg/actuation 1 puff inhalation Q4-6H PRN Dyspnea 10/17/18 10/17/18 aerosol inhaler (Proventil HFA) aspirin 81 mg tablet,delayed 81 mg PO DAILY 10/17/18 10/17/18 release (Dionte Low Dose Aspirin) doxazosin 4 mg tablet 4 mg PO DAILY 10/17/18 10/17/18 finasteride 5 mg tablet 5 mg PO DAILY 10/17/18 10/17/18 fluticasone propionate 220 1 puff inhalation BID 10/17/18 10/17/18 mcg/actuation HFA aerosol inhaler (Flovent HFA) glipizide 5 mg tablet 5 mg PO BID 10/17/18 10/17/18 lisinopril 2.5 mg tablet 2.5 mg PO DAILY 10/17/18 10/17/18 lovastatin 40 mg tablet 40 mg PO DAILY 10/17/18 10/17/18 metformin 1,000 mg tablet 1,000 mg PO BID 10/17/18 10/17/18 omeprazole 20 mg capsule,delayed 20 mg PO DAILY 10/17/18 10/17/18 release Previous Rx's Medication Instructions Recorded hydrocodone 5 mg-acetaminophen 325 1 tab PO Q6H PRN pain #7 tabs 10/17/18 mg tablet ([place]) erythromycin 5 mg/gram (0.5 %) eye 0.5 inch EYE-LEFT Q6HR 5 days #3.5 12/26/24 ointment grams Allergies Allergy/AdvReac Type Severity Reaction Status Date / Time No Known Drug Allergies Allergy Verified 01/15/24 16:06 Review of Systems <Jarod Wiseman PA-C - Last Filed: 12/26/24 18:39> Constitutional Constitutional: Denies chills, Denies fatigue, Denies fever(s), Denies frequent falls, Denies lethargy and Denies weakness Eyes Eyes: Denies change in vision, Denies eye discharge, Denies irritation and Denies loss of vision Comments: Left eye irritation ENT Ears, Nose, Mouth, and Throat: Denies change in voice, Denies dizziness, Denies neck pain, Denies sore throat and Denies throat swelling Cardiovascular Cardiovascular: Denies chest pain, Denies irregular heart rhythm, Denies lightheadedness, Denies palpitations, Denies dyspnea, Denies dyspnea on exertion and Denies orthopnea Respiratory Respiratory: Denies cough, Denies dyspnea, Denies dyspnea on exertion and Denies wheezing Gastrointestinal Gastrointestinal: Denies abdominal pain, Denies change in bowel habits, Denies diarrhea, Denies nausea and Denies vomiting Musculoskeletal Musculoskeletal: Denies neck pain and Denies numbness Integumentary/Breasts Skin/Breast: Denies pruritus, Denies erythema, Denies rash and Denies wounds Neurologic Neurologic: Denies behavioral changes, Denies confusion, Denies dizziness, Denies frequent falls, Denies loss of vision, Denies numbness and Denies weakness Psychiatric Psychiatric: Denies anxiety, Denies behavioral changes, Denies confusion, Denies depression, Denies homicidal ideation and Denies suicidal ideation Endocrine Endocrine: Denies fatigue, Denies flushing and Denies palpitations Hematologic/Lymphatic Hematologic/Lymphatic: Denies easy bruising Allergic/Immunologic Allergic/Immunologic: Denies urticaria, Denies throat swelling and Denies wheezing Patient History <Jarod Wiseman PA-C - Last Filed: 12/26/24 18:39> Medical History (Updated 12/26/24 @ 15:26 by Jarod Wiseman PA-C) Lung cancer Coronary artery disease Hypertension Dyslipidemia Diabetes Surgical History (Updated 10/17/18 @ 03:01 by Apryl Alvarez DO) History of hip surgery Social History (Updated 10/17/18 @ 03:01 by Apryl Alvaerz DO) marital status: details: Lives in [place], [place] household members: spouse lives independently: Yes Smoking Status: Never smoker Smoking Status: Never smoker alcohol intake frequency: 0-2 drinks per day Exam <Jarod Wiseman PA-C - Last Filed: 12/26/24 18:39> Narrative Exam Narrative: Const General:?cooperative, healthy appearing and comfortable [facility] Head:?normal to inspection Ears:?hearing grossly normal bilaterally Nose:?external nose normal Face and sinus:?normal facial exam and sinuses nontender Mouth:?oral mucosae normal Throat:?posterior oropharynx normal Eyes General:? There is subconjunctival hemorrhage, conjunctival injection of the left eye. Fluorescein exam negative for corneal abrasions. Some conjunctival abrasions noted. No pain with extraocular movements. PH was 7. Neck Neck:?normal visual inspection and no lymphadenopathy noted Resp Effort & Inspection:?normal respiratory effort Auscultation:?clear to auscultation bilaterally Cardio Rate:?regular rate Rhythm:?regular rhythm Neuro General:?patient alert, patient awake and patient oriented x3 Initial Vital Signs Initial Vital Signs: Vital Signs Temperature 97.7 F 12/26/24 12:45 Pulse Rate 62 12/26/24 12:45 Respiratory Rate 16 12/26/24 12:45 Blood Pressure 150/65 H 12/26/24 12:45 Pulse Oximetry 100 12/26/24 12:45 Oxygen Delivery Method Room Air 12/26/24 12:45 <Laura Tavera DO - Last Filed: 12/28/24 13:39> Initial Vital Signs Initial Vital Signs: Vital Signs Temperature 97.7 F 12/26/24 12:45 Pulse Rate 62 12/26/24 12:45 Respiratory Rate 16 12/26/24 12:45 Blood Pressure 150/65 H 12/26/24 12:45 Pulse Oximetry 100 12/26/24 12:45 Oxygen Delivery Method Room Air 12/26/24 12:45 Course <Jarod Wiseman PA-C - Last Filed: 12/26/24 18:39> Orders Ordered: Discontinued Medications Erythromycin (Erythromycin Ophth 1 Gm Oint) 1 applic EYE-LEFT NOW ONE Stop: 12/26/24 14:26 Last Admin: 12/26/24 15:46 Dose: 1 applic Documented By: SPF Fluorescein Sodium (Fluorescein 1 Mg Strip) 1 mg EYE-LEFT NOW ONE Stop: 12/26/24 13:27 Last Admin: 12/26/24 14:26 Dose: 1 mg Documented By: SPF Proparacaine HCl (Proparacaine 0.5% Ophth Camryn) 1 drops EYE-BOTH NOW ONE Stop: 12/26/24 13:27 Last Admin: 12/26/24 14:15 Dose: 1 drop Documented By: SPF Vital Signs Vital signs: Vital Signs - 8 hr 12/26/24 12:45 12/26/24 16:00 Temperature 97.7 F Pulse Rate 62 59 L Respiratory Rate 16 14 Blood Pressure 150/65 H 164/70 H Pulse Oximetry 100 97 Oxygen Delivery Method Room Air Room Air <Laura Tavera DO - Last Filed: 12/28/24 13:39> Orders Ordered: Discontinued Medications Erythromycin (Erythromycin Ophth 1 Gm Oint) 1 applic EYE-LEFT NOW ONE Stop: 12/26/24 14:26 Last Admin: 12/26/24 15:46 Dose: 1 applic Documented By: SPF Fluorescein Sodium (Fluorescein 1 Mg Strip) 1 mg EYE-LEFT NOW ONE Stop: 12/26/24 13:27 Last Admin: 12/26/24 14:26 Dose: 1 mg Documented By: SPF Proparacaine HCl (Proparacaine 0.5% Ophth Camryn) 1 drops EYE-BOTH NOW ONE Stop: 12/26/24 13:27 Last Admin: 12/26/24 14:15 Dose: 1 drop Documented By: SPF Vital Signs Vital signs: Vital Signs - 8 hr 12/26/24 12:45 12/26/24 16:00 Temperature 97.7 F Pulse Rate 62 59 L Respiratory Rate 16 14 Blood Pressure 150/65 H 164/70 H Pulse Oximetry 100 97 Oxygen Delivery Method Room Air Room Air MDM - Eye Problem <Jarod Wiseman PA-C - Last Filed: 12/26/24 18:39> MDM Narrative Medical decision making narrative: 79-year-old male presents to the ED with 4 days of left-sided eye irritation. Concern for keratoconjunctivitis versus conjunctival abrasion versus corneal abrasion versus other. Patient's eye was pH tested with pH of 7. Patient's symptoms significantly improved with proparacaine. Fluorescein exam negative for corneal abrasions. Mild conjunctival abrasions noted. There is some subconjunctival hemorrhage as well. Eye exam with visual acuity 20/30 OU, 20/200 OD, 20/30 OS. Patient's eye was copious irrigated with a Jose R lens. Erythromycin eye ointment applied. Prescribed erythromycin eye ointment. Recommend proparacaine eye drop about every hour as needed, limited to only 24 hours. Recommend follow-up with an headend technician as soon as possible. ED return precautions discussed with patient. Patient verbalized understanding. Medical records reviewed: Yes Discharge Plan Departure Patient Disposition: Home Clinical Impression: Conjunctival abrasion Qualifiers: Encounter type: initial encounter Laterality: left Qualified Code(s): S05.02XA - Injury of conjunctiva and corneal abrasion without foreign body, left eye, initial encounter Instructions: DI for Chemical Eye Burn Activity Restrictions/Additional Instructions: You were evaluated in the ED today for an eye injury. It appears that you have some injury to the conjunctiva from the hot oil. Please stop using the entire redness drops. You are being prescribed an antibiotic ointment. Please apply that as prescribed. You were also being sent home with some proparacaine which you could use 1 drop in the left eye every hour for the next 24 hours if you are uncomfortable. Please stop using it after the 1st 24 hours. The proparacaine eyedrops also need to be refrigerated. Your eye has been washed out today. Please refrain from rubbing it. You may also take ibuprofen for the headache and eye irritation. It is important that you follow-up with a eye doctor/headend technician as soon as possible. Return to the ED if you have wors ening symptoms, vision changes. Prescriptions: New erythromycin 5 mg/gram (0.5 %) ointment 0.5 inch EYE-LEFT Q6HR 5 Days Qty: 3.5 0RF No Action lovastatin 40 mg Tablet 40 mg PO DAILY aspirin [Dionte Low Dose Aspirin] 81 mg Tablet,Delayed Release (Dr/Ec) 81 mg PO DAILY metformin 1,000 mg Tablet 1,000 mg PO BID omeprazole 20 mg Capsule,Delayed Release(Dr/Ec) 20 mg PO DAILY doxazosin 4 mg Tablet 4 mg PO DAILY fluticasone propionate [Flovent HFA] 220 mcg/actuation Hfa Aerosol Inhaler 1 puff INHALATION BID albuterol sulfate [Proventil HFA] 90 mcg/actuation Hfa Aerosol Inhaler 1 puff INHALATION Q4-6H PRN (Reason: Dyspnea) lisinopril 2.5 mg Tablet 2.5 mg PO DAILY finasteride 5 mg Tablet 5 mg PO DAILY glipizide 5 mg Tablet 5 mg PO BID hydrocodone-acetaminophen [[place]] 5-325 mg tablet 1 tab PO Q6H PRN (Reason: pain) Qty: 7 0RF Referrals: Miscellaneous,Doctor, MD [Primary Care Provider] - Stand Alone Forms: Patient Portal/API/Survey ED Sign-out <Laura Tavera DO - Last Filed: 12/28/24 13:39> Cosign ED Attending Nikolay Attestation: I was available for consultation.
== END 2024-12-26 16:00 | disposition home or self-care (01) ==
PROVIDERS: Emergency Provider Student in an Organized Health Care Education/Training Program
DX: S05.02XA Injury of conjunctiva and corneal abrasion without foreign body, left eye, initial encounter (principal); E78.5 Hyperlipidemia, unspecified; I10 Essential (primary) hypertension; Z86.79 Personal history of other diseases of the circulatory system; E11.9 Type 2 diabetes mellitus without complications; Z79.84 Long term (current) use of oral hypoglycemic drugs; X58.XXXA Exposure to other specified factors, initial encounter
CPT/HCPCS: 99283; 99284